=== PATIENT | female | born 1995 | race Two or more races ===

== ENCOUNTER 2016-08-11 18:08 | Emergency (ER) | payer MEDICAID ==
[~2016-08-11] VITALS: Ht 152.4 cm; Wt 97.5 kg
[2016-08-11 18:18] VITALS: BP 152/94; PULSE 93; RESP 16; TEMP 97.6; O2SAT 99
--- NOTE | 2016-08-11 18:30 | NUR ---
Patient to ER bed 4 to gown for evaluation. Side rails up. Report given to Morenita FERRERA.
--- NOTE | 2016-08-11 18:38 | NUR ---
DR POSEY AT BEDSIDE FOR EVALUATION
--- NOTE | 2016-08-11 18:44 | NUR ---
TAKEN TO ULTRASOUND VIA WHEELCHAIR.
--- NOTE | 2016-08-11 19:00 | NUR ---
Pt presents to ED for vaginal bleeding per report. Appeared calm, VSS
[2016-08-11 19:03] LABS: BASOPHILS # (AUTO) 0.2 K/uL (0.0-0.2); EOSINOPHILS # (AUTO) 0.2 K/uL (0.0-0.4); HEMATOCRIT 35.9 % (36-48); HEMOGLOBIN 11.8 g/dL (12.0-16.0); LYMPHOCYTES % (AUTO) 29.8 % (20.5-51.5); MEAN CORPUSCULAR HEMOGLOBIN 25 pg (27-31); MEAN CORPUSCULAR HGB CONC 33 % (32-36); MEAN CORPUSCULAR VOLUME 75 fL (79.0-98.0); MONOCYTES # (AUTO) 0.9 K/uL (0.0-1.0); MONOCYTES % (AUTO) 8.9 % (1.7-9.3); NEUTROPHILS # (AUTO) 5.9 K/uL (1.8-7.7); NEUTROPHILS % (AUTO) 57.3 % (40.0-70.0); PLATELET COUNT (AUTO) 361 K/uL (130-430); RED CELL DISTRIBUTION WIDTH 15.7 % (9.0-15.0); WHITE BLOOD COUNT (AUTO) 10.2 K/uL (4.8-10.8)
[2016-08-11 19:50] VITALS: BP 132/76; PULSE 88; RESP 16; TEMP 97.6; O2SAT 98
--- NOTE | 2016-08-11 19:50 | NUR ---
Patient given written and verbal discharge instructions and verbalizes understanding. ER MD Suarez discussed with patient the results and treatment provided. Patient in stable condition. ID arm band removed. Rx of provera given. Patient educated on pain management and to follow up with PMD. Pain Scale 0/10 Opportunity for questions provided and answered.
== END 2016-08-11 19:50 | disposition home or self-care (01) ==
LOC: SED 18:08
DX: N93.8 Other specified abnormal uterine and vaginal bleeding (principal)
CPT/HCPCS: 36415; 76830-TC; 76857; 80048; 85025; 99285

== ENCOUNTER 2018-01-21 13:39 | Emergency (ER) | payer MEDICAID ==
[~2018-01-21] VITALS: Ht 162.6 cm; Wt 97.5 kg
[2018-01-21 13:44] VITALS: BP_SYST 134
[2018-01-21 14:32] LABS: BASOPHILS # (AUTO) 0.1 K/uL (0.0-0.2); BASOPHILS % (AUTO) 1.1 % (0.0-2.0); EOSINOPHILS # (AUTO) 0.1 K/uL (0.0-0.4); EOSINOPHILS % (AUTO) 1.1 % (0.0-4.0); HEMATOCRIT 37.8 % (36-48); HEMOGLOBIN 12.8 g/dL (12.0-16.0); LYMPHOCYTES # (AUTO) 2.5 K/uL (1.0-5.5); LYMPHOCYTES % (AUTO) 24.4 % (20.5-51.5); MEAN CORPUSCULAR HEMOGLOBIN 28 pg (27-31); MEAN CORPUSCULAR HGB CONC 34 % (32-36); MEAN CORPUSCULAR VOLUME 82 fL (79.0-98.0); MONOCYTES # (AUTO) 0.7 K/uL (0.0-1.0); MONOCYTES % (AUTO) 6.5 % (1.7-9.3); NEUTROPHILS # (AUTO) 6.9 K/uL (1.8-7.7); NEUTROPHILS % (AUTO) 66.9 % (40.0-70.0); PLATELET COUNT (AUTO) 332 K/uL (130-430); RED BLOOD CELL COUNT(AUTO) 4.62 MIL/uL (4.2-6.2); RED CELL DISTRIBUTION WIDTH 15.6 % (9.0-15.0); WHITE BLOOD COUNT (AUTO) 10.3 K/uL (4.8-10.8)
[2018-01-21 14:34] LABS: BILIRUBIN,URINE NEGATIVE (NEGATIVE); BLOOD, URINE 3+ (NEGATIVE); CLARITY/URINE CLOUDY (CLEAR); COLOR,URINE YELLOW (YELLOW); GLUCOSE,URINE NEGATIVE (NEGATIVE); KETONES,URINE NEGATIVE (NEGATIVE); LEUKOCYTE ESTERASE ,URINE TRACE (NEGATIVE); NITRITE, URINE NEGATIVE (NEGATIVE); PROTEIN URINE 1+ (NEGATIVE)
[2018-01-21 14:37] LABS: UROBILINOGEN,URINE >=8 (0.2-1.0)
[2018-01-21 14:44] LABS: BACTERIA,URINE MODERATE /HPF (None Seen); MUCUS,URINE 1+ /LPF (None Seen); RBC,URINE 50-80 /HPF (0-3); WBC,URINE 0-3 /HPF (0-3)
[2018-01-21 14:52] LABS: CALCIUM 8.8 mg/dL (8.4-11.0); CREATININE 0.91 mg/dL (0.55-1.30); POTASSIUM 3.5 mmol/L (3.5-5.1)
[2018-01-21 14:56] LABS: ALBUMIN 3.7 g/dL (3.4-4.8); TOTAL BILIRUBIN 0.4 mg/dL (0.0-1.0)
[2018-01-21] MEDS ORDERED: cefTRIAXone 250 MG in LIDOCAINE 1%, 20 ML MDV 0.9 ML IM ONE (15:30)
[2018-01-21 16:46] VITALS: BP_SYST 132
[2018-01-23 01:11] LABS: NEISSERIA GONORRHOEAE NAA Negative (Negative)
[2018-01-23 10:15] LABS: CHLAMYDIA TRACHOMATIS NAA Positive (Negative)
== END 2018-01-21 16:45 | disposition home or self-care (01) ==
LOC: SED 13:39
DX: N93.8 Other specified abnormal uterine and vaginal bleeding (principal); N83.209 Unspecified ovarian cyst, unspecified side; N39.0 Urinary tract infection, site not specified; N73.9 Female pelvic inflammatory disease, unspecified; R03.0 Elevated blood-pressure reading, without diagnosis of hypertension
CPT/HCPCS: 36415; 76830; 76857; 80053; 81000; 81025; 83690; 85025; 87086; 87210; 87252; 87491; 87591; 96372; 99285; J0696; J2001

== ENCOUNTER 2020-08-18 21:15 | Emergency (ER) | payer MEDICAID ==
[~2020-08-18] VITALS: Ht 154.9 cm; Wt 97.5 kg
[2020-08-18 21:25] VITALS: BP_SYST 143
[2020-08-18 22:00] LABS: BASOPHILS % (AUTO) 0.4 % (0.0-2.0); EOSINOPHILS # (AUTO) 0.2 K/uL (0.0-0.4); EOSINOPHILS % (AUTO) 1.6 % (0.0-4.0); HEMOGLOBIN 13.2 g/dL (12.0-16.0); LYMPHOCYTES # (AUTO) 2.8 K/uL (1.0-5.5); LYMPHOCYTES % (AUTO) 26.5 % (20.5-51.5); MEAN CORPUSCULAR HEMOGLOBIN 27 pg (27-31); MEAN CORPUSCULAR HGB CONC 33 % (32-36); MEAN CORPUSCULAR VOLUME 81 fL (79.0-98.0); MONOCYTES # (AUTO) 0.8 K/uL (0.0-1.0); MONOCYTES % (AUTO) 7.7 % (1.7-9.3); NEUTROPHILS # (AUTO) 6.7 K/uL (1.8-7.7); NEUTROPHILS % (AUTO) 63.8 % (40.0-70.0); PLATELET COUNT (AUTO) 309 K/uL (130-430); RED BLOOD CELL COUNT(AUTO) 4.94 MIL/uL (4.2-6.2); WHITE BLOOD COUNT (AUTO) 10.6 K/uL (4.8-10.8)
[2020-08-18 22:14] LABS: POTASSIUM 3.6 mmol/L (3.5-5.1)
[2020-08-18 22:15] LABS: CALCIUM 8.8 mg/dL (8.4-11.0); CREATININE 0.92 mg/dL (0.55-1.30)
[2020-08-18 22:27] LABS: ALBUMIN 3.6 g/dL (3.4-4.8); TOTAL BILIRUBIN 0.3 mg/dL (0.0-1.0)
[2020-08-18 23:16] LABS: BILIRUBIN,URINE NEGATIVE (NEGATIVE); BLOOD, URINE NEGATIVE (NEGATIVE); CLARITY/URINE CLEAR (CLEAR); COLOR,URINE YELLOW (YELLOW); GLUCOSE,URINE NEGATIVE (NEGATIVE); KETONES,URINE NEGATIVE (NEGATIVE); LEUKOCYTE ESTERASE ,URINE NEGATIVE (NEGATIVE); NITRITE, URINE NEGATIVE (NEGATIVE); PROTEIN URINE NEGATIVE (NEGATIVE)
[2020-08-18 23:30] VITALS: BP_SYST 143
== END 2020-08-18 23:30 | disposition home or self-care (01) ==
LOC: SED 21:15
DX: O26.891 Other specified pregnancy related conditions, first trimester (principal); R10.11 Right upper quadrant pain; Z3A.01 Less than 8 weeks gestation of pregnancy
CPT/HCPCS: 36415; 76700-TC; 76802; 80053; 81003; 81025; 82150-TC; 83605; 83690-TC; 84702-TC; 85025; 99284

== ENCOUNTER 2020-08-21 13:59 | Emergency (ER) | payer MEDICAID ==
[~2020-08-21] VITALS: Ht 154.9 cm; Wt 113.4 kg
[2020-08-21 14:06] VITALS: BP_SYST 147
[2020-08-21 16:40] VITALS: BP_SYST 147
== END 2020-08-21 16:40 | disposition home or self-care (01) ==
LOC: SED 13:59
DX: O26.891 Other specified pregnancy related conditions, first trimester (principal); R10.31 Right lower quadrant pain; Z3A.01 Less than 8 weeks gestation of pregnancy
CPT/HCPCS: 36415; 76801; 76817; 81025; 84702-TC; 99284